=== PATIENT | male | born 1985 | race Caucasian/White ===

== ENCOUNTER 2017-08-14 13:56 | Emergency (ER) | payer MEDICAID ==
[2017-08-14 14:14] VITALS: BP 141/84
[2017-08-14] MEDS ORDERED: Dental Adhesive 1 Tube DENT ONE (14:28)
[2017-08-14] MEDS ORDERED: Hydrogen Peroxide 3% Top Soln 240 ML Bottle TOP ONE (14:41)
--- NOTE | 2017-08-14 15:02 | EDM.PDOC ---
ED HPI GENERAL MEDICAL PROBLEM - General Chief Complaint: ENT Problem Stated Complaint: WISDOM TOOTH TOP RT Time Seen by Provider: 08/14/17 14:20 Source of Information: Reports: Patient History Limitations: Reports: No Limitations - History of Present Illness INITIAL COMMENTS - FREE TEXT/NARRATIVE: 31-year-old male with recurring right lower dental pain and deep advanced caries has seen a dentist several times and they're trying to come up with a plan for removal with possible oral surgery. Over the past several days it's been much worse, very sensitive to cold and air. He was given 20 hydrocodone for dental pain last spring, still has a few doses which he has brought with him. No fevers or chills, no swelling. He is interested in a temporary filling. Onset: Unknown/Unsure Duration: Week(s): (Symptoms have been ongoing for weeks but much worse the last 48-72 hours) Right Lower Tooth/Teeth Pain Score (Numeric/FACES): 9 - Related Data Allergies Allergy/AdvReac Type Severity Reaction Status Date / Time No Known Allergies Allergy Verified 08/14/17 14:14 Home Meds: Home Meds Hydrocodone/Acetaminophen [Hydrocodon-Acetaminophen 5-325] 1 each PO Q6H PRN [History] Past Medical History - Past Health History Medical/Surgical History: Denies Medical/Surgical History Social & Family History - Tobacco Use Smoking Status *Q: Current Every Day Smoker Years of Tobacco use: 10 Packs/Tins Daily: 0.5 Used Tobacco, but Quit: Yes Month Tobacco Last Used: 96 Second Hand Smoke Exposure: No - Caffeine Use Caffeine Use: Reports: Soda - Alcohol Use Days Per Week of Alcohol Use: 1 Number of Drinks Per Day: 0 Total Drinks Per Week: 0 - Recreational Drug Use Recreational Drug Use: No ED ROS ENT - Review of Systems Review Of Systems: See Below Constitutional: Denies: Fever, Chills HEENT: Reports: Dental Pain, Other (No facial swelling) Respiratory: Denies: Shortness of Breath GI/Abdominal: Denies: Nausea, Vomiting Skin: Reports: No Symptoms Neurological: Denies: Headache ED EXAM, ENT - Physical Exam Exam: See Below Exam Limited By: No Limitations General Appearance: Alert, No Apparent Distress (Patient looks uncomfortable but not distressed) Mouth/Throat: Other (He does have a very deep carry present on the posterior aspect of the third molar on the right mandible. He currently has a small piece of cotton pressed into the defect. There is no significant gingival erythema.) Course - Vital Signs Last Recorded V/S: Last Vital Signs Temp 99.0 F 08/14/17 14:10 Pulse 90 08/14/17 14:10 Resp 16 08/14/17 14:10 BP 141/84 H 08/14/17 14:10 Pulse Ox 97 08/14/17 14:10 - Orders/Labs/Meds Meds: Medications Discontinued Medications Generic Name Dose Route Start Last Admin Trade Name Nataliia PRN Reason Stop Dose Admin Denture Adhesive 1 applic 08/14/17 14:28 08/14/17 14:32 Dentemp Custom DENT 08/14/17 14:29 1 applic ONETIME ONE Administration Hydrogen Peroxide 15 ml 08/14/17 14:41 08/14/17 14:51 Proxacol 3% TOP 08/14/17 14:42 15 ml ONETIME ONE Administration - Re-Assessments/Exams Free Text/Narrative Re-Assessment/Exam: 08/14/17 14:59 The patient flushed the area with peroxide and [place] Temp was used as a temporary filling in the area. He was placed on 50 mg of prednisone daily, penicillin 500 4 times daily and given 10 extra hydrocodone for pain control. He is going to call his dentist and oral surgeon tomorrow to try to get extraction arranged. Departure - Departure Time of Disposition: 15:13 Disposition: Home, Self-Care 01 Condition: Good Clinical Impression: Pain due to dental caries - Discharge Information Instructions: Dental Caries, [id number] Referrals: PCP,None [Primary Care Provider] - Forms: ED Department Discharge Care Plan Goals: Use antibiotic and prednisone as directed. Take all 5 pills of prednisone before your first meal of the day. Take at least 5 days, the 6th day you can take the last 5 if no significant side effects. Call for definitive dental care at a dentist or oral surgeon as soon as possible.
== END 2017-08-14 15:12 | disposition home or self-care (01) ==
LOC: JP.ED 13:56
DX: K02.9 Dental caries, unspecified (principal); F17.210 Nicotine dependence, cigarettes, uncomplicated
CPT/HCPCS: 99283; A9270

== ENCOUNTER 2018-02-15 15:29 | Inpatient (IN) | payer SELFPAY ==
[2018-02-15] MEDS ORDERED: HYDROmorphone 0.5 MG/0.5 ML Syringe IVPUSH ONE ×2 (18:08→19:01)
[2018-02-15] MEDS ORDERED: Ampicillin/Sulbactam Na 3 GM in Sodium Chloride 0.9% 100 ML IV ONE (18:08)
[2018-02-15] MEDS ORDERED: Sodium Chloride 0.9% 1,000 ML IV SCH (18:15)
--- NOTE | 2018-02-15 18:28 | EDM.PDOC ---
ED HPI GENERAL MEDICAL PROBLEM - General Chief Complaint: Skin Complaint Stated Complaint: BOIL ON HIP Time Seen by Provider: 02/15/18 18:00 Source of Information: Reports: Patient History Limitations: Reports: No Limitations - History of Present Illness INITIAL COMMENTS - FREE TEXT/NARRATIVE: 32-year-old male presents with pain, swelling, and erythema in the left groin area extending laterally to the hip and distally to the upper thigh. He thinks it may be related to an injury when he was scratched by a cat around 5 days ago. Over the past 48-72 hours he's had a significant increase in swelling and pain. Any movement of the left leg is very uncomfortable. He is unsure if he's been having fevers. No nausea or vomiting. Onset: Gradual (Over the past 4-5 days) Location: Reports: Lower Extremity, Left Quality: Reports: Ache, Stabbing Severity: Moderate Worsens with: Reports: Movement Associated Symptoms: Reports: Fever/Chills (Possible fevers intermittently), Malaise left groin Pain Score (Numeric/FACES): 6 - Related Data Allergies Allergy/AdvReac Type Severity Reaction Status Date / Time No Known Allergies Allergy Verified 02/15/18 19:24 Home Meds: Home Meds NK [No Known Home Meds] 02/15/18 [History] Past Medical History - Past Health History Medical/Surgical History: Denies Medical/Surgical History Social & Family History - Tobacco Use Smoking Status *Q: Current Every Day Smoker Years of Tobacco use: 10 Packs/Tins Daily: 0.5 Used Tobacco, but Quit: Yes Month/Year Tobacco Last Used: 96 Second Hand Smoke Exposure: No - Caffeine Use Caffeine Use: Reports: Soda - Alcohol Use Days Per Week of Alcohol Use: 1 Number of Drinks Per Day: 0 Total Drinks Per Week: 0 - Recreational Drug Use Recreational Drug Use: No ED ROS GENERAL - Review of Systems Review Of Systems: See Below Constitutional: Reports: Chills, Malaise HEENT: Reports: No Symptoms Respiratory: Denies: Shortness of Breath Cardiovascular: Denies: Chest Pain GI/Abdominal: Reports: Abdominal Pain (Extreme left lower abdominal discomfort related to the cutaneous infection) : Reports: No Symptoms Skin: Reports: Erythema Neurological: Reports: No Symptoms ED EXAM, SKIN/RASH Exam: See Below Exam Limited By: No Limitations General Appearance: Alert, Mild Distress (Patient is fairly uncomfortable, especially with any movement) Throat/Mouth: Normal Inspection Head: Atraumatic Respiratory/Chest: No Respiratory Distress Cardiovascular: Regular Rate, Rhythm. No: Tachycardia GI/Abdominal: Tender (Some tenderness when palpating the extreme left lower quadrant near the erythema developing from the left groin) (Male) Exam: Other (The left groin has a few superficial traumatic lesions, overlying a fairly large transverse raised firm and extremely tender subcutaneous infection ranging from the groin laterally to the left hip.) Neurological: Alert, Oriented Psychiatric: Normal Affect, Normal Mood Skin: Erythema, Increased Warmth Location, Skin: Lower Extremity, Left, Groin Course - Vital Signs Last Recorded V/S: Last Vital Signs Temp 98.7 F 02/15/18 19:50 Pulse 84 02/15/18 19:50 Resp 18 02/15/18 19:50 BP 113/73 02/15/18 19:50 Pulse Ox 99 02/15/18 19:50 - Orders/Labs/Meds Orders: Active Orders 24 hr Category Date Time Status Extremity Non Vascular Lt [US] Stat Exams 02/15/18 18:06 Taken CULTURE BLOOD [BC] Urgent Lab 02/15/18 18:17 Received CULTURE BLOOD [BC] Urgent Lab 02/15/18 18:27 Received Sodium Chloride 0.9% [Normal Saline] 1,000 ml Med 02/15/18 18:15 Active IV ASDIRECTED Blood Culture x2 Reflex Set [OM.PC] Urgent Oth 02/15/18 18:12 Ordered Medication Orders Acetaminophen (Tylenol) 650 mg PO Q6H PRN PRN Reason: Pain (mild 1-3) Benzocaine/Menthol (Cepacol Sore Throat) 1 lozenge MUCMEM Q1H PRN PRN Reason: Sore Throat Diphenhydramine HCl (Benadryl) 25 mg PO Q4H PRN PRN Reason: Itching Docusate Sodium (Colace) 100 mg PO BID PRN PRN Reason: Constipation Fentanyl (Sublimaze) 25 mcg IVPUSH Q1H PRN PRN Reason: Pain (moderate 4-6) Hydroxyzine HCl (Vistaril) 50 mg IM Q4H PRN PRN Reason: Nausea Sodium Chloride (Normal Saline) 1,000 mls @ 500 mls/hr IV ASDIRECTED [facility] Last Admin: 02/15/18 18:36 Dose: 500 mls/hr Ampicillin Sodium/Sulbactam (Sodium 3 gm/ Sodium Chloride) 100 mls @ 200 mls/ hr IV Q6H [facility] Ondansetron HCl (Zofran) 4 mg IVPUSH Q6H PRN PRN Reason: Nausea/Vomiting Zolpidem Tartrate (Ambien) 5 mg PO BEDTIME PRN PRN Reason: Insomnia Labs: Laboratory Tests 02/15/18 02/15/18 Range/Units 18:17 18:17 WBC 12.7 H (4.5-11.0) K/uL RBC 4.66 (4.30-5.90) M/uL Hgb 14.5 (12.0-15.0) g/dL Hct 43.1 (40.0-54.0) % MCV 93 (80-98) fL MCH 31 (27-31) pg MCHC 34 (32-36) % Plt Count 209 (150-400) K/uL Neut % (Auto) 78 H (36-66) % Lymph % (Auto) 12 L (24-44) % [place] % (Auto) 10 H (2-6) % Eos % (Auto) 0 L (2-4) % Baso % (Auto) 0 (0-1) % Sodium 136 L (140-148) mmol/L Potassium 3.3 L (3.6-5.2) mmol/L Chloride 101 (100-108) mmol/L Carbon Dioxide 26 (21-32) mmol/L Anion Gap 12.3 (5.0-14.0) mmol/L BUN 9 (7-18) mg/dL Creatinine 0.7 L (0.8-1.3) mg/dL Est Cr Clr Drug Dosing 159.33 mL/min Estimated GFR (MDRD) > 60 (>60) Glucose 96 (74-106) mg/dL Calcium 8.8 (8.5-10.1) mg/dL Meds: Medications Generic Name Dose Route Start Last Admin Trade Name Freq PRN Reason Stop Dose Admin Acetaminophen 650 mg 02/15/18 19:14 Tylenol PO Q6H PRN Pain (mild 1-3) Benzocaine/Menthol 1 lozenge 02/15/18 19:14 Cepacol Sore Throat MUCMEM Q1H PRN Sore Throat Diphenhydramine HCl 25 mg 02/15/18 19:14 Benadryl PO Q4H PRN Itching Docusate Sodium 100 mg 02/15/18 19:14 Colace PO BID PRN Constipation Fentanyl 25 mcg 02/15/18 19:14 Sublimaze IVPUSH Q1H PRN Pain (moderate 4-6) Hydroxyzine HCl 50 mg 02/15/18 19:14 Vistaril IM Q4H PRN Nausea Sodium Chloride 1,000 mls @ 500 mls/hr 02/15/18 18:15 02/15/18 18:36 Normal Saline IV 500 mls/hr ASDIRECTED CANDIE Administration Ampicillin Sodium/Sulbactam 100 mls @ 200 mls/hr 02/15/18 19:30 Sodium 3 gm/ Sodium Chloride IV Q6H CANDIE Ondansetron HCl 4 mg 02/15/18 19:14 Zofran IVPUSH Q6H PRN Nausea/Vomiting Zolpidem Tartrate 5 mg 02/15/18 19:14 Ambien PO BEDTIME PRN Insomnia Discontinued Medications Generic Name Dose Route Start Last Admin Trade Name Freq PRN Reason Stop Dose Admin Hydromorphone HCl 0.5 mg 02/15/18 18:08 02/15/18 18:36 Dilaudid IVPUSH 02/15/18 18:09 0.5 mg ONETIME ONE Administration Hydromorphone HCl 0.5 mg 02/15/18 19:01 02/15/18 19:06 Dilaudid IVPUSH 02/15/18 19:02 0.5 mg ONETIME ONE Administration Ampicillin Sodium/Sulbactam 100 mls @ 200 mls/hr 02/15/18 18:08 02/15/18 18: 36 Sodium 3 gm/ Sodium Chloride IV 02/15/18 18:37 200 mls/hr ONETIME ONE Administration - Re-Assessments/Exams Free Text/Narrative Re-Assessment/Exam: 02/15/18 18:29 I'm concerned this is beyond what we can treat in the emergency room. An IV was started, normal saline at 500 mL an hour was started and the patient was given 0.5 mg of IV Dilaudid. CBC, BMP and blood cultures were obtained. After phone consultation with surgery, the patient was given 3 g of IV Unasyn and an ultrasound of the area was ordered. 02/15/18 20:42 White count was 12,700. Ultrasound did show some fluid collection but not a significant amount, the largest being 1-[address] Martinez kindly accepted the patient for admission and we'll try IV antibiotics before surgical intervention. Departure - Departure Time of Disposition: 19:59 Disposition: Admitted As Inpatient 68 Clinical Impression: Cellulitis Qualifiers: Site of cellulitis: extremity Site of cellulitis of extremity: lower extremity Laterality: left Qualified Code(s): L03.116 - Cellulitis of left lower limb - Discharge Information - My Orders Last 24 Hours: My Active Orders 02/15/18 18:06 Extremity Non Vascular Lt [US] Stat 02/15/18 18:12 Blood Culture x2 Reflex Set [OM.PC] Urgent 02/15/18 18:15 Sodium Chloride 0.9% [Normal Saline] 1,000 ml IV ASDIRECTED 02/15/18 18:17 CULTURE BLOOD [BC] Urgent 02/15/18 18:27 CULTURE BLOOD [BC] Urgent - Assessment/Plan Last 24 Hours: My Active Orders 02/15/18 18:06 Extremity Non Vascular Lt [US] Stat 02/15/18 18:12 Blood Culture x2 Reflex Set [OM.PC] Urgent 02/15/18 18:15 Sodium Chloride 0.9% [Normal Saline] 1,000 ml IV ASDIRECTED 02/15/18 18:17 CULTURE BLOOD [BC] Urgent 02/15/18 18:27 CULTURE BLOOD [BC] Urgent
[2018-02-15] MEDS ORDERED: Ondansetron 4 MG/2 ML SDV IVPUSH PRN (19:14)
[2018-02-15] MEDS ORDERED: diphenhydrAMINE 25 MG Cap PO PRN (19:14)
[2018-02-15] MEDS ORDERED: fentaNYL 100 MCG/2 ML SDV IVPUSH PRN (19:14)
[2018-02-15] MEDS ORDERED: Benzocaine/Cetylpyridinium/Menthol Lozenge MUCMEM PRN (19:14)
[2018-02-15] MEDS ORDERED: Acetaminophen 325 MG Tab PO PRN (19:14)
[2018-02-15] MEDS ORDERED: hydrOXYzine HCl 100 MG/2 ML SDV IM PRN (19:14)
[2018-02-15] MEDS ORDERED: Docusate Sodium 100 MG Cap PO PRN (19:14)
[2018-02-15] MEDS ORDERED: Zolpidem 5 MG Tab PO PRN (19:14)
[2018-02-15] MEDS: Ampicillin/Sulbactam Na 3 GM in Sodium Chloride 0.9% 100 ML IV SCH (20:46)
[2018-02-15] MEDS: Ibuprofen 600 MG Tab PO PRN (22:44)
[2018-02-15] MEDS: Acetaminophen/HYDROcodone 325-5 MG Tab PO PRN (22:44)
[2018-02-16] MEDS: Ampicillin/Sulbactam Na 3 GM in Sodium Chloride 0.9% 100 ML IV SCH ×3 (02:28→14:33)
[2018-02-16] MEDS: Acetaminophen/HYDROcodone 325-5 MG Tab PO PRN ×4 (03:30→19:36)
--- NOTE | 2018-02-16 03:39 | CONS ---
DATE OF SERVICE: 02/15/2018 REFERRING PHYSICIAN: CONSULTING PHYSICIAN: Roc Martinez MD REASON FOR CONSULTATION: Left leg cellulitis. HISTORY OF PRESENT ILLNESS: This is a 32-year-old male who I believe was scratched by a cat few days ago. He has developed pain in his left leg and groin. His pain is described as 1 to 2 out of 10 associated with redness. PAST SURGICAL HISTORY: None. PAST MEDICAL HISTORY: None. SOCIAL HISTORY: He does smoke. FAMILY HISTORY: Noncontributory. REVIEW OF SYSTEMS: GENERAL: The patient is appropriate for condition. HEENT: No contributing symptoms. CARDIOVASCULAR: No history of myocardial infarction. RESPIRATORY: No history of shortness of breath. GASTROINTESTINAL: No recent changes. GENITOURINARY: No recent changes. NEUROLOGICAL: No significant changes. PSYCH: No significant changes. PHYSICAL EXAMINATION: VITAL SIGNS: Stable. GENERAL: The patient is appropriate for his condition. HEENT: Pupils are equal. NECK: Supple. LUNGS: Clear. CARDIOVASCULAR: Regular rhythm and rate. ABDOMEN: Bowel sounds positive. EXTREMITIES: Range of motion is appropriate. SKIN: Cellulitis to the left leg extending from his groin to lateral aspect of his hip. IMAGING: I did review the ultrasound which shows large area of abscess or anything else, official ultrasound results are pending. ASSESSMENT: Cellulitis secondary to probable cat scratch. PLAN: The nursing staff was instructed to review his tetanus. In addition, we will admit the patient for Unasyn antibiotics. Depending on this, we will schedule him for either outpatient or continued inpatient antibiotics. Roc Martinez MD /[id number]
[2018-02-16] MEDS: Ibuprofen 600 MG Tab PO PRN ×2 (05:40→18:06)
[2018-02-16] MEDS: Ertapenem 1 GM in Sodium Chloride 0.9% 100 ML IV SCH (17:08)
--- NOTE | 2018-02-16 19:47 | PN ---
DATE OF SERVICE: 02/16/2018 SUBJECTIVE: The patient is doing better today. Subjectively, the patient states his pain is significantly improved. No nausea, vomiting, shortness of breath, or chest pain. PHYSICAL EXAMINATION: VITAL SIGNS: Stable. Temperature 99.1, blood pressure 133/76, respirations 18, 98% on room air. CARDIOVASCULAR: Regular rate. RESPIRATORY: Lungs clear to auscultation bilaterally. ABDOMEN: Left groin, the cellulitis compared to the surgical marker compared to yesterday has decreased in size, approximately 20%. LABORATORY RESULTS: White blood cell count decreased to 11.9. ASSESSMENT: Cat scratch. PLAN: Continue IV antibiotics. We will work on discharging him in the next 24 to 48 hours. Hopefully, this can be possible. Nonetheless, the patient does need continued IV antibiotics for approximately 5 to 7 more days. Roc Martinez MD /[id number]
[2018-02-17] MEDS: Acetaminophen/HYDROcodone 325-5 MG Tab PO PRN ×2 (01:22→21:47)
[2018-02-17] MEDS: Ibuprofen 600 MG Tab PO PRN ×4 (01:23→21:47)
[2018-02-17] MEDS ORDERED: Lidocaine 1% with EPINEPHrine 1:100,000 50 ML MDV INJECT ONE (09:30)
[2018-02-17] MEDS ORDERED: Morphine 4 MG/ML Syringe IVPUSH ONE (09:30)
[2018-02-17] MEDS ORDERED: Vancomycin 1.8 GM in Sodium Chloride 0.9% 250 ML IV ONE (10:00)
--- NOTE | 2018-02-17 11:36 | PN ---
DATE OF SERVICE: 02/17/2018 SUBJECTIVE: The patient is still having some swelling and pain in his left groin. This has improved, but not to the extent that we would like to see it. He is having bowel movements. Pain is controlled. OBJECTIVE: VITAL SIGNS: Temperature 99.6, blood pressure 129/69, pulse 89, respirations 16, and 96% on room air. GI: The wound itself shows improvement of the cellulitis, but it has not abated. ASSESSMENT AND PLAN: Cellulitis, left groin. We have been treating this with broad- spectrum antibiotics. We will today and excited to get a tissue culture. He does have an exposure to MRSA; therefore, we will add vancomycin today. He would like to be discharged in the next 24 hours. This will be dependent on the results of the adding of vancomycin. Aside from that, continue the same plan. Roc Martinez MD /[id number]
[2018-02-17] MEDS: Ertapenem 1 GM in Sodium Chloride 0.9% 100 ML IV SCH (17:45)
[2018-02-17] MEDS ORDERED: Vancomycin 1.4 GM in Sodium Chloride 0.9% 250 ML IV SCH (22:00)
[2018-02-18] MEDS: Acetaminophen/HYDROcodone 325-5 MG Tab PO PRN (02:50)
[2018-02-18] MEDS: Ibuprofen 600 MG Tab PO PRN (07:44)
--- NOTE | 2018-02-18 08:50 | US ---
Extremity Non Vascular Lt HISTORY: assess groin abscess FINDINGS: There a fluid collection with ill-defined margins in the subcutaneous tissues in area of th e patient's redness and swelling left lower quadrant. This measures approximately 1.9 x 1.0 x 0.7 cm. There is surrounding edema in the subcutaneous tissues. IMPRESSION: Edema and ill-defined fluid small collection left lower quadrant in the area of the patie nt's redness and swelling as above. Well-organized abscess is not seen.
--- NOTE | 2018-02-18 10:01 | OR ---
DATE OF PROCEDURE: 02/17/2018 PROCEDURE: Incision and drainage of left groin abscess. COMPLICATIONS: None. DIAMOND BLENDER: None. ANESTHESIA: Lidocaine 1% and morphine IV. FINDINGS: Moderate amount of pus noted. SPECIMENS: Pus sent for culture. PROCEDURE IN DETAIL: The patient was placed in the supine position. After morphine was given, approximately 15 minutes was given to allow the effect to occur. Betadine was then used to prep the skin. The skin was then anesthetized with approximately 10 mL of lidocaine 1%. After this, a [place] clamp and an 11 blade were used to enlarge the abscess area. A moderate amount of pus was able to be removed, and this was cultured. This was then thoroughly irrigated with approximately 20 mL of fluid. Dressings were applied. The patient tolerated the procedure well. Roc Martinez MD /[id number]
[2018-02-18 13:35] VITALS: BP 140/68
[2018-02-18] MEDS ORDERED: Ertapenem 1 GM in Sodium Chloride 0.9% 100 ML IV SCH (14:00)
--- NOTE | 2018-02-18 20:22 | PN ---
DATE OF SERVICE: 02/18/2018 SUBJECTIVE: The patient is doing significantly better today after abscess drainage. Pain has improved. No nausea, vomiting, shortness of breath, or chest pain. OBJECTIVE: VITAL SIGNS: Stable. He is afebrile. CARDIOVASCULAR: Regular rhythm and rate. RESPIRATORY: Lungs are clear to auscultation bilaterally. ABDOMEN: Left groin shows a moderate amount of pus drainage from the incision. ASSESSMENT: Status post abscess drainage. PLAN: The patient is doing better since the abscess drainage. The cellulitis has improved. We will continue to work on dressing changes and allow this abscess to continue to drain. Continue antibiotics. He will probably need antibiotics for about seven more days, and we will work on arranging this on an outpatient basis. Roc Martinez MD /[id number]
== END 2018-02-18 15:09 | disposition home or self-care (01) | DRG 581 ==
LOC: JP.ED 15:29 → JP.MS 19:14
PROVIDERS: ADMIT Surgery; ATTEND Surgery
PROC: 0J9C0ZZ Drainage of Pelvic Region Subcutaneous Tissue and Fascia, Open Approach (ICD-10-PCS; principal; 2018-02-17)
DX: L03.116 Cellulitis of left lower limb (principal); S71.152A Open bite, left thigh, initial encounter; W55.01XA Bitten by cat, initial encounter; F17.200 Nicotine dependence, unspecified, uncomplicated
CPT/HCPCS: 36415; 76881-26; 76881-LT; 80048; 85025; 85027; 87040; 87070; 87077; 87186; 87205; 99285-25; A9270-GY; J0295; J1170; J1335; J2270; J3010; J3370; J7030; J7040; J7050